=== PATIENT | male | born 1990 | race Caucasian/White ===

== ENCOUNTER 2020-07-13 00:08 | Emergency (ER) | payer SELFPAY ==
[~2020-07-13] VITALS: Ht 167.6 cm; Wt 63.5 kg
--- NOTE | 2020-07-13 00:08 | NUR ---
PT BIBA BLS. TAKEN TO BED 9
--- NOTE | 2020-07-13 00:10 | NUR ---
Dr. Marks with pt for MSE.
[2020-07-13] MEDS ORDERED: ALBUTEROL 0.083% 2.5 MG/3 ML NEBU INH STA (00:12)
[2020-07-13] MEDS ORDERED: DEXAMETHASONE 4 MG/ML VIAL PO STA (00:12)
[2020-07-13 00:19] VITALS: BP 121/69
[2020-07-13] MEDS ORDERED: ALBU0.0912 INH (00:51)
[2020-07-13] MEDS ORDERED: PRED20TA5 PO (00:51)
[2020-07-13 06:20] VITALS: BP 128/72
--- NOTE | 2020-07-13 06:20 | NUR ---
Patient discharged with v/s stable. Written and verbal after care instructions given and explained. Patient verbalized understanding. Ambulatory with steady gait. All questions addressed prior to discharge. Advised to follow up with PMD.
== END 2020-07-13 06:20 | disposition home or self-care (01) ==
LOC: MED 00:08
DX: J45.901 Unspecified asthma with (acute) exacerbation (principal)
CPT/HCPCS: 94640; 99283; J7613

== ENCOUNTER 2021-05-18 17:06 | Emergency (ER) | payer SELFPAY ==
[~2021-05-18] VITALS: Ht 162.6 cm; Wt 59.0 kg
[~2021-05-18 17:06] MED LIST: ALBU0.0912 INH; PRED20TA5 PO
[2021-05-18 17:11] VITALS: BP 113/91
--- NOTE | 2021-05-18 17:13 | NUR ---
PT TRIAGED AND SENT TO THE LOBBY.
[2021-05-18] MEDS ORDERED: ALBUTEROL SULFATE/IPRATROPIU 3 ML SOL IH ONE (17:40)
[2021-05-18] MEDS ORDERED: ALBU0.0912 IH (18:14)
[2021-05-18] MEDS ORDERED: PRED20TA5 PO (18:14)
--- NOTE | 2021-05-18 20:15 | NUR ---
PT CLEARED FOR DISCHARGE. PT LEFT FACILITY WITHOUT DISCHARGE INSTRUCTIONS.
== END 2021-05-18 20:15 | disposition home or self-care (01) ==
LOC: MED 17:06
DX: J45.909 Unspecified asthma, uncomplicated (principal); Z79.899 Other long term (current) drug therapy
CPT/HCPCS: 94640; 99283

== ENCOUNTER 2021-06-13 18:58 | Emergency (ER) | payer OTHER ==
[~2021-06-13] VITALS: Ht 165.1 cm; Wt 59.0 kg
[~2021-06-13 18:58] MED LIST changes: +ALBU0.0912 IH
[2021-06-13 19:00] VITALS: BP 104/64
[2021-06-13] MEDS ORDERED: ALBUTEROL 0.083% 2.5 MG/3 ML NEBU INH ONE (19:05)
[2021-06-13] MEDS ORDERED: predniSONE 20 MG TAB PO ONE (19:05)
[2021-06-13] MEDS ORDERED: PRED20TA5 PO (19:10)
--- NOTE | 2021-06-13 19:16 | NUR ---
pt taken to bed 4
--- NOTE | 2021-06-13 20:08 | NUR ---
rt at bedside for respiratory tx
--- NOTE | 2021-06-13 20:16 | NUR ---
PATIENT CLEARED FOR DISHCARGE AT THIS TIME. RX SENT TO PREFERRED PHARMACY AND NO FURTHER QUESTIONS FOLLOWING DISHCARGE TEACHING. ADVISED TO FOLLOW UP WITH PCP AND RETURN IF CONDITION WORSNES. REFUSED TO SIGN DISHCARGE PAPERS
[2021-06-13 20:17] VITALS: BP 132/59
== END 2021-06-13 20:16 | disposition home or self-care (01) ==
LOC: MED 18:58
DX: J45.901 Unspecified asthma with (acute) exacerbation (principal); Z79.899 Other long term (current) drug therapy
CPT/HCPCS: 94640; 99283; J7512; J7613